=== PATIENT | female | born 1990 | race American Indian/Alaskan Native ===

== ENCOUNTER 2019-09-23 12:32 | Emergency (ER) | payer SELFPAY ==
[2019-09-23] MEDS ORDERED: ONDANSETRON 4 MG ODT TAB PO ONE (12:58)
[2019-09-23] MEDS ORDERED: SODIUM CHLORIDE 0.9% 1000 ML 1,000 ML IV ONE ×2 (13:00→14:14)
--- NOTE | 2019-09-23 13:01 | Emergency Department Report ---
ED Abdominal Pain HPI - General Chief Complaint: Abdominal Pain Stated Complaint: NAUSEA/ABD PAIN/BACK PAIN Time Seen by Provider: 09/23/19 12:58 Source: patient Mode of arrival: Ambulatory Limitations: No Limitations - History of Present Illness Initial Comments: 28-year-old -[place] female patient presents with complaints dysuria and left flank pain. Patient states her symptoms started yesterday with a burning sensation while urinating and developed into left flank pain by the end of the night. She reports history of recurrent UTIs and pyelonephritis, but denies any history of kidney stones. She rates her current pain as a 9/10 in severity and describes it as a aching stabbing pain. Patient also admits to more than 7 episodes of nausea vomiting, but denies any hematemesis/coffee-ground emesis or diarrhea/hematochezia/melena. She also reports a tactile fever and sweats. Patient states "this feels like the last time I had a kidney infection". She denies being seen by urologist in the past for her recurrent UTIs and kidney i nfections. - Related Data Previous Rx's Medication Instructions Recorded Last Taken Type DOXYCYCLINE Hyclate [Vibramycin 100 mg PO BID #20 capsule 01/06/14 Unknown Rx CAP] HYDROcodone/APAP 5-325 [[place] 1 each PO Q6HR PRN #20 tablet 01/06/14 Unknown Rx 5/325] Ibuprofen [Motrin] 600 mg PO Q8H PRN #60 tablet 01/06/14 Unknown Rx Acetaminophen/Codeine [Tylenol 1 tab PO Q6H PRN #10 tab 09/23/19 Unknown Rx /Codeine # 3 tab] Sulfamethoxazole/Trimethoprim 1 each PO BID #20 tablet 09/23/19 Unknown Rx [Bactrim DS TAB] Allergies Allergy/AdvReac Type Severity Reaction Status Date / Time No Known Allergies Allergy Unverified 01/06/14 08:56 ED Review of Systems ROS: Stated complaint: NAUSEA/ABD PAIN/BACK PAIN Other details as noted in HPI Constitutional: diaphoresis, fever. denies: chills Respiratory: denies: cough, shortness of breath Cardiovascular: denies: chest pain Gastrointestinal: abdominal pain, nausea, vomiting. denies: diarrhea, con stipation, hematemesis, melena, hematochezia Genitourinary: urgency, dysuria, frequency. denies: hematuria, discharge Musculoskeletal: denies: back pain Skin: denies: rash, lesions Neurological: denies: headache Hematological/Lymphatic: denies: swollen glands ED Past Medical Hx - Past Medical History Previous Medical History?: Yes Additional medical history: Hx. of frequent UTI - Surgical History Past Surgical History?: No - Social History Smoking Status: Never Smoker Substance Use Type: Marijuana - Medications Home Medications: Home Medications Medication Instructions Recorded Confirmed Last Taken Type DOXYCYCLINE Hyclate [Vibramycin 100 mg PO BID #20 capsule 01/06/14 Unknown Rx CAP] HYDROcodone/APAP 5-325 [[place] 1 each PO Q6HR PRN #20 tablet 01/06/14 Unknown Rx 5/325] Ibuprofen [Motrin] 600 mg PO Q8H PRN #60 tablet 01/06/14 Unknown Rx Acetaminophen/Codeine [Tylenol 1 tab PO Q6H PRN #10 tab 09/23/19 Unknown Rx /Codeine # 3 tab] Sulfamethoxazole/Trimethoprim 1 each PO BID #20 tablet 09/23/19 Unknown Rx [Bactrim DS TAB] ED Physical Exam - General Limitations: No Limitations General appearance: alert, other (Patient is actively gagging and appears uncomfortable) - Head Head exam: Present: atraumatic, normocephalic - Eye Eye exam: Present: normal appearance. Absent: scleral icterus - Neck Neck exam: Present: full ROM - Respiratory Respiratory exam: Present: normal lung sounds bilaterally. Absent: respiratory distress - Cardiovascular Cardiovascular Exam: Present: regular rate, normal rhythm. Absent: systolic murmur, diastolic murmur, rubs, gallop - GI/Abdominal GI/Abdominal exam: Present: soft, distended, tenderness (Suprapubic and left CVA tenderness), normal bowel sounds. Absent: guarding, rebound, rigid - Extremities Exam Extremities exam: Present: normal inspection - Back Exam Back exam: Present: full ROM. Absent: paraspinal tenderness, vertebral tenderness - Neurological Exam Neurological exam: Present: alert, oriented X3 - Psychiatric Psychiatric exam: Present: normal affect, normal mood - Skin Skin exam: Present: warm, dry, intact, normal color. Absent: rash ED Course Vital Signs 09/23/19 09/23/19 12:43 15:53 Temperature 99.7 F H 99.0 F Pulse Rate 95 H 84 Respiratory 16 16 Rate Blood Pressure 137/101 Blood Pressure 126/90 [Left] O2 Sat by Pulse 100 99 Oximetry ED Medical Decision Making - Lab Data Result diagrams: 09/23/19 13:35 09/23/19 13:35 Lab Results 09/23/19 09/23/19 09/23/19 Range/Units 13:35 13:35 13:35 WBC 10.8 (4.5-11.0) K/mm3 RBC 4.84 (3.65-5.03) M/mm3 Hgb 14.5 H (10.1-14.3) gm/dl Hct 43.3 H (30.3-42.9) % MCV 89 (79-97) fl MCH 30 (28-32) pg MCHC 33 (30-34) % RDW 13.3 (13.2-15.2) % Plt Count 259 (140-440) K/mm3 Lymph % (Auto) 12.2 L (13.4-35.0) % [place] % (Auto) 9.7 H (0.0-7.3) % Eos % (Auto) 1.1 (0.0-4.3) % Baso % (Auto) 0.3 (0.0-1.8) % Lymph # 1.3 (1.2-5.4) K/mm3 Kidder # 1.0 H (0.0-0.8) K/mm3 Eos # 0.1 (0.0-0.4) K/mm3 Baso # 0.0 (0.0-0.1) K/mm3 Seg Neutrophils % 76.7 H (40.0-70.0) % Seg Neutrophils # 8.3 H (1.8-7.7) K/mm3 Sodium (137-145) mmol/L Potassium (3.6-5.0) mmol/L Chloride (98-107) mmol/L Carbon Dioxide (22-30) mmol/L Anion Gap mmol/L BUN (7-17) mg/dL Creatinine (0.7-1.2) mg/dL Estimated GFR ml/min BUN/Creatinine Ratio % Glucose (65-100) mg/dL Calcium (8.4-10.2) mg/dL Total Bilirubin (0.1-1.2) mg/dL Direct Bilirubin (0-0.2) mg/dL Indirect Bilirubin mg/dL AST (5-40) units/L ALT (7-56) units/L Alkaline Phosphatase (35-129) units/L Total Protein (6.3-8.2) g/dL Albumin (3.9-5) g/dL Albumin/Globulin Ratio % Lipase 14 (13-60) units/L HCG, Qual Negative (Negative) Urine Color (Yellow) Urine Turbidity (Clear) Urine pH (5.0-7.0) Ur Specific [place] (1.003-1.030) Urine Protein (Negative) mg/dL Urine Glucose (UA) (Negative) mg/dL Urine Ketones (Negative) mg/dL Urine Blood (Negative) Urine Nitrite (Negative) Urine Bilirubin (Negative) Urine Urobilinogen (<2.0) mg/dL Ur Leukocyte Esterase (Negative) Urine WBC (Auto) (0.0-6.0) /HPF Urine RBC (Auto) (0.0-6.0) /HPF U Epithel Cells (Auto) (0-13.0) /HPF Urine Bacteria (Auto) (Negative) /HPF Urine WBC Clumps /HPF Ur Renal Epithelial Cell /LPF Urine Mucus /HPF 09/23/19 09/23/19 Range/Units 13:35 15:36 WBC (4.5-11.0) K/mm3 RBC (3.65-5.03) M/mm3 Hgb (10.1-14.3) gm/dl Hct (30.3-42.9) % MCV (79-97) fl MCH (28-32) pg MCHC (30-34) % RDW (13.2-15.2) % Plt Count (140-440) K/mm3 Lymph % (Auto) (13.4-35.0) % Kid[place] % (Auto) (0.0-7.3) % Eos % (Auto) (0.0-4.3) % Baso % (Auto) (0.0-1.8) % Lymph # (1.2-5.4) K/mm3 Kidder # (0.0-0.8) K/mm3 Eos # (0.0-0.4) K/mm3 Baso # (0.0-0.1) K/mm3 Seg Neutrophils % (40.0-70.0) % Seg Neutrophils # (1.8-7.7) K/mm3 Sodium 141 (137-145) mmol/L Potassium 3.3 L (3.6-5.0) mmol/L Chloride 101.2 (98-107) mmol/L Carbon Dioxide 26 (22-30) mmol/L Anion Gap 17 mmol/L BUN 12 (7-17) mg/dL Creatinine 0.5 L (0.7-1.2) mg/dL Estimated GFR > 60 ml/min BUN/Creatinine Ratio 24 % Glucose 97 (65-100) mg/dL Calcium 9.4 (8.4-10.2) mg/dL Total Bilirubin 0.60 (0.1-1.2) mg/dL Direct Bilirubin < 0.2 (0-0.2) mg/dL Indirect Bilirubin 0.4 mg/dL AST 28 (5-40) units/L ALT 68 H (7-56) units/L Alkaline Phosphatase 131 H (35-129) units/L Total Protein 7.6 (6.3-8.2) g/dL Albumin 4.2 (3.9-5) g/dL Albumin/Globulin Ratio 1.2 % Lipase (13-60) units/L HCG, Qual (Negative) Urine Color Yellow (Yellow) Urine Turbidity Cloudy (Clear) Urine pH 6.0 (5.0-7.0) Ur Specific [place] 1.010 (1.003-1.030) Urine Protein 100 mg/dl (Negative) mg/dL Urine Glucose (UA) Neg (Negative) mg/dL Urine Ketones 20 (Negative) mg/dL Urine Blood Mod (Negative) Urine Nitrite Pos (Negative) Urine Bilirubin Neg (Negative) Urine Urobilinogen < 2.0 (<2.0) mg/dL Ur Leukocyte Esterase Lg (Negative) Urine WBC (Auto) > 182.0 H (0.0-6.0) /HPF Urine RBC (Auto) 83.0 (0.0-6.0) /HPF U Epithel Cells (Auto) 5.0 (0-13.0) /HPF Urine Bacteria (Auto) 2+ (Negative) /HPF Urine WBC Clumps 3+ /HPF Ur Renal Epithelial Cell 1 /LPF Urine Mucus 3+ /HPF - Medical Decision Making Patient presents with complaints of dysuria and left flank pain. She has a history of recurrent UTIs and pyelonephritis. Patient has left CVA tenderness and suprapubic tenderness on exam. She denies any history of kidney stones. White count is normal CBC. UA shows >182 WBCs with positive nitrites. Potassium mildly decreased at 3.3, kidney function is normal. Patient given 2 L of saline, oral potassium 40 mg, and 1 g of Rocephin IV. Vitals are normal. She denies any further pain. Patient is stable for discharge home. Will treat for pyelonephritis with Bactrim DS. Recommend follow-up with primary care physician and urology. Strict return precautions were discussed in great detail with patient who verbalizes understanding. Critical care attestation.: If time is entered above; I have spent that time in minutes in the direct care of this critically ill patient, excluding procedure time. ED Disposition Clinical Impression: Pyelonephritis Disposition: DC-01 TO HOME OR SELFCARE Is pt being admited?: No Condition: Stable Instructions: Acute Pyelonephritis (ED) Prescriptions: Sulfamethoxazole/Trimethoprim [Bactrim DS TAB] 1 each PO BID #20 tablet Acetaminophen/Codeine [Tylenol /Codeine # 3 tab] 1 tab PO Q6H PRN #10 tab PRN Reason: Pain , Severe (7-10) Referrals: CATHI GALAN MD [Staff Physician] - 3-5 Days MALATHI HUITRON MD [Staff Physician] - 3-5 Days
[2019-09-23] MEDS ORDERED: METOCLOPRAMIDE 10 MG/2 ML INJ IV ONE (13:24)
[2019-09-23] MEDS ORDERED: diphenhydrAMINE 50 MG/ML VIAL IV ONE (13:24)
[2019-09-23] MEDS ORDERED: MORPHINE 4 MG/1 ML INJ IV ONE (13:34)
[2019-09-23 13:59] LABS: Basophils % (Auto) 0.3 % (0.0-1.8); Eosinophils # (Auto) 0.1 K/mm3 (0.0-0.4); Eosinophils % (Auto) 1.1 % (0.0-4.3); Hematocrit 43.3 % (30.3-42.9); Hemoglobin 14.5 gm/dl (10.1-14.3); Lymphocytes # (Auto) 1.3 K/mm3 (1.2-5.4); Lymphocytes % (Auto) 12.2 % (13.4-35.0); Mean Corpuscular HGB Conc 33 % (30-34); Mean Corpuscular Volume 89 fl (79-97); Monocytes % (Auto) 9.7 % (0.0-7.3); Platelet Count 259 K/mm3 (140-440); Red Blood Count 4.84 M/mm3 (3.65-5.03); Red Cell Distribution Width 13.3 % (13.2-15.2)
[2019-09-23 14:14] LABS: Alanine Aminotransferase 68 units/L (7-56); Albumin 4.2 g/dL (3.9-5); BUN/Creatinine Ratio 24; Blood Urea Nitrogen 12 mg/dL (7-17); Calcium 9.4 mg/dL (8.4-10.2); Hemolysis Index 4
[2019-09-23] MEDS ORDERED: POTASSIUM CHLORIDE ER 20 MEQ TAB PO ONE (14:15)
[2019-09-23 14:47] LABS: Bilirubin,Direct < 0.2 mg/dL (0-0.2)
[2019-09-23 15:54] VITALS: BP 126/90
[2019-09-23 15:57] LABS: Bacteria,Urine 2+ /HPF (Negative); Bilirubin,Urine NEG (Negative); Blood,Urine MOD (Negative); Color,Urine Yellow (Yellow); Mucus,Urine 3+ /HPF; Renal Epithelial Cells,Urine 1 /LPF; Urobilinogen,Urine < 2.0 mg/dL (<2.0); WBC,Urine > 182.0 /HPF (0.0-6.0)
[2019-09-23] MEDS ORDERED: cefTRIAXone/NS 2 GM/100 ML 2 GM/100 ML BAG IV ONE (15:59)
[2019-09-23] MEDS ORDERED: cefTRIAXone/NS 1 GM/50 ML 1 GM/50 ML BAG IV ONE (16:06)
[2019-09-23] MEDS ORDERED: KETOROLAC 30 MG/1 ML INJ IV ONE (16:14)
== END 2019-09-23 17:18 | disposition home or self-care (01) ==
LOC: ED 12:32
DX: N12 Tubulo-interstitial nephritis, not specified as acute or chronic (principal)
CPT/HCPCS: 36415; 80048; 80076; 81001; 83690; 84703; 85025; 96361; 96365; 96375; 99283; J0696; J1200; J1885; J2270; J2765; J7030; Q0162

== ENCOUNTER 2020-11-23 12:20 | Emergency (ER) | payer SELFPAY ==
[2020-11-23 13:52] VITALS: BP 101/68
[2020-11-23 14:54] LABS: Bilirubin,Urine NEG (Negative); Blood,Urine NEG (Negative); Color,Urine Amber (Yellow); Mucus,Urine 3+ /HPF
[2020-11-23 15:04] LABS: HCG Qualitative,Urine Positive (Negative)
--- NOTE | 2020-11-23 15:20 | Event Note ---
ED Screening Note Date of service: 11/23/20 Time: 15:18 ED Screening Note: Pt complains N/V, headache, neck stiffness x 3 days denies abdominal pain, vaginal bleeding, or urinary symptoms urine test is positive LMP 10/22/20, A0 This initial assessment/diagnostic orders/clinical plan/treatment(s) is/are subject to change based on patients health status, clinical progression and re- assessment by fellow clinical providers in the ED. Further treatment and workup at subsequent clinical providers discretion. Patient/guardian urged not to elope from the ED as their condition may be serious if not clinically assessed and managed. Initial orders include: labs fluids
[2020-11-23 15:41] LABS: Basophils % (Auto) 0.6 % (0.0-1.8); Eosinophils % (Auto) 0.1 % (0.0-4.3); Hematocrit 40.2 % (30.3-42.9); Hemoglobin 13.8 gm/dl (10.1-14.3); Lymphocytes # (Auto) 0.7 K/mm3 (1.2-5.4); Lymphocytes % (Auto) 9.3 % (13.4-35.0); Mean Corpuscular HGB Conc 34 % (30-34); Mean Corpuscular Volume 93 fl (79-97); Monocytes % (Auto) 13.2 % (0.0-7.3); Platelet Count 202 K/mm3 (140-440); Red Blood Count 4.34 M/mm3 (3.65-5.03); Red Cell Distribution Width 13.5 % (13.2-15.2)
[2020-11-23 16:09] LABS: Alanine Aminotransferase 26 units/L (7-56); Albumin 4.3 g/dL (3.9-5); Blood Urea Nitrogen 9 mg/dL (7-17); Calcium 9.1 mg/dL (8.4-10.2); Hemolysis Index 7
[2020-11-23 16:11] LABS: BUN/Creatinine Ratio 18
== END 2020-11-23 18:00 | disposition left against medical advice (07) ==
LOC: ED 12:20
DX: R11.10 Vomiting, unspecified (principal); R51.9 Headache, unspecified; Z53.21 Procedure and treatment not carried out due to patient leaving prior to being seen by health care provider
CPT/HCPCS: 36415; 80053; 81001; 81025; 84703; 85025; 87086; 87186